=== PATIENT | male | born 1985 | race Caucasian/White ===

== ENCOUNTER 2020-04-25 17:16 | Emergency (ER) | payer BC, OTHER ==
[~2020-04-25 17:16] MED LIST: FAMO-63 PO; PRED50TA PO
[2020-04-25 19:19] VITALS: BP 118/82
== END 2020-04-25 19:19 | disposition left against medical advice (07) ==
LOC: ER 17:16
DX: R07.81 Pleurodynia (principal); Z53.21 Procedure and treatment not carried out due to patient leaving prior to being seen by health care provider